=== PATIENT | male | born 1980 | race African-American/Black ===

== ENCOUNTER → 2019-09-25 | Day surgery (SDC) | payer OTHER ==
[~2019-09-25] MED LIST: ATOR20TA58 PO; FAMO20TA5 PO; IBUP400T18 PO; IPRATRPIUM/ALBUTEROL 0.5/2.5MG 3 ML NEBU. NEB PRN; IV RINGERS SOLUTION,LACTATED 1,000 ML IV SCH; OMEP20TA8 PO; ONDANSETRON PF 4 MG/2 ML VIAL. IV PRN; PROPOFOL 40 ML IV ONE
[2019-09-25 12:44] VITALS: BP 112/65
--- NOTE | 2019-09-29 12:06 | PATHOLOGY ---
[facility] Accession Number: [id number] . 01 Material submitted: . stomach - ANTRUM GASTRITIS . 01 Clinical history: . None provided . 02 Diagnosis: Gastric biopsies, antrum: - Active chronic gastritis, moderate, with Helicobacter organisms identified. . (JPM:lennie; 09/29/2019) S 09/29/2019 0910 Local . 02 Comment: Sections of the gastric biopsy reveal segments of gastric antral mucosa showing focally active moderate chronic inflammation. A properly controlled immunoperoxidase stain for Helicobacter reveals focally prominent numbers of Helicobacter organisms. There is no evidence of malignancy. (JPM:lennie; 09/29/2019) . . Special stain performed: Immunoperoxidase stain for Helicobacter . 02 Electronically signed: . Toño Powell MD, Pathologist NPI- [id number] . 01 Gross description: . The specimen is received in formalin, labeled "Aleks Llanes, antrum/gastritis". Received is a segment of pale ochoa soft tissue measuring 0.5 cm in maximum dimensions. The specimen is submitted entirely in cassette A1. (CAA; 09/28/2019) QAC/QAC 09/28/2019 1714 Local . 02 Pathologist provided ICD-10: K29.50, B96.81 . 02 CPT . 754770, [id number] Specimen Comment: A courtesy copy of this report has been sent to [phone] Specimen Comment: Report sent to Performed at: 01 [facility] [address], [place] [id number] MD Santosh Lopez MD Phone: [phone] Performed at: 02 [facility] [address] [place], [place] [id number] MD Toño Powell MD Phone: [phone]
== END ==
LOC: SURG 10:42 → EDBD 10:42 → EEVIPCON 11:30
PROVIDERS: ATTEND Internal Medicine Gastroenterology
DX: K29.50 Unspecified chronic gastritis without bleeding (principal); K29.00 Acute gastritis without bleeding; E78.00 Pure hypercholesterolemia, unspecified; K21.9 Gastro-esophageal reflux disease without esophagitis
CPT/HCPCS: 43239; J2704; J7120; J3010